=== PATIENT | female | born 1970 | race Caucasian/White ===

== ENCOUNTER → 2016-03-07 | Outpatient (CLI) | payer OTHER ==
--- NOTE | 2016-03-07 14:48 | DX ---
Sacroiliac joints, 3 views. HISTORY: Pain. FINDINGS: Mild subchondral sclerosis involves the right sacroiliac joint suggestive of early degenera tive arthropathy. The left sacroiliac joint is normal in appearance. Marked intervertebral disc height loss at L5-S1 compatible with degenerative disc disease. IMPRESSION: 1. Early right sacroiliac degenerative joint disease. 2. Advanced L5-S1 degenerative disc disease.
== END ==
LOC: BMCIMAGING 13:07
PROVIDERS: ATTEND Internal Medicine Rheumatology
DX: M47.898 Other spondylosis, sacral and sacrococcygeal region (principal); M51.37 Other intervertebral disc degeneration, lumbosacral region

== ENCOUNTER → 2017-03-04 | Outpatient (CLI) | payer OTHER | LOC: BMCIMAGING 12:56 | PROVIDERS: ATTEND Internal Medicine Rheumatology | DX: M18.9 Osteoarthritis of first carpometacarpal joint, unspecified (principal) ==

== ENCOUNTER → 2018-01-28 | Outpatient (CLI) | payer OTHER | LOC: BMCIMAGING 12:32 | PROVIDERS: ATTEND Nurse Practitioner Women's Health | DX: Z12.31 Encounter for screening mammogram for malignant neoplasm of breast (principal) ==

== ENCOUNTER → 2018-02-21 | Outpatient (CLI) | payer OTHER | LOC: BMCIMAGING 10:14 | PROVIDERS: ATTEND Nurse Practitioner Women's Health | DX: R92.2 Inconclusive mammogram (principal); R92.0 Mammographic microcalcification found on diagnostic imaging of breast ==

== ENCOUNTER → 2018-03-25 | Day surgery (SDC) | payer OTHER ==
[~2018-03-25] MED LIST: BUPIVACAINE 0.5% 30 ML SDV ONE; LIDOCAINE 1% 300 MG/30 ML SDV ONE
== END | disposition home or self-care (01) ==
LOC: FIMAGING 07:19
PROVIDERS: ATTEND Nurse Practitioner Women's Health
DX: D24.2 Benign neoplasm of left breast (principal); N60.12 Diffuse cystic mastopathy of left breast; R92.0 Mammographic microcalcification found on diagnostic imaging of breast